=== PATIENT | male | born 1975 | race Asian ===

== ENCOUNTER 2019-11-15 16:54 | Inpatient (IN) | payer OTHER ==
[~2019-11-15] VITALS: Ht 167.6 cm; Wt 88.0 kg
[2019-11-15 18:07] LABS: BASOPHILS % (AUTO) 0.4 % (0.0-2.0); EOSINOPHILS % (AUTO) 0.5 % (1.0-6.0); HEMATOCRIT 43.6 % (41-53); HEMOGLOBIN 15.2 g/dL (13.5-17.5); LYMPHOCYTES # (AUTO) 3.6 K/uL (1.0-4.8); LYMPHOCYTES % (AUTO) 39.2 % (22.0-44.0); MEAN CORPUSCULAR HEMOGLOBIN 30.4 pg (26.0-34.0); MEAN CORPUSCULAR HGB CONC 34.8 G/dL (31.0-37.0); MEAN CORPUSCULAR VOLUME 88 fL (80-100); MONOCYTES # (AUTO) 0.8 K/uL (0.1-1.0); MONOCYTES % (AUTO) 8.7 % (2.0-9.0); NEUTROPHILS # (AUTO) 4.8 K/uL (1.8-7.7); NEUTROPHILS % (AUTO) 51.2 % (40.0-70.0); PLATELET COUNT (AUTO) 177 K/uL (150-450); RED BLOOD CELL COUNT(AUTO) 4.99 MIL/uL (4.50-5.90); RED CELL DISTRIBUTION WIDTH 13.3 % (11.5-14.5)
[2019-11-15] MEDS ORDERED: CloZAPine 100 MG TABLET PO ONE (18:15)
[2019-11-15 18:16] LABS: ANION GAP 15 mmol/L (8-16); CALCIUM, TOTAL 9.2 mg/dL (8.8-10.5); CARBON DIOXIDE 25 mmol/L (22-29); CHLORIDE 100 mmol/L (98-107); CREATININE 1.14 mg/dL (0.60-1.30); GLOMERULAR FILTR. RATE CALC > 60 mL/min (>60); GLUCOSE,RANDOM 147 mg/dL (70-110); POTASSIUM 3.5 mmol/L (3.5-5.1); SODIUM SERUM 140 mmol/L (136-145); UREA NITROGEN, BLOOD 15 mg/dL (7-18)
[2019-11-15 18:22] LABS: ALANINE AMINOTRANSFERASE 84 U/L (12-78); ALBUMIN 4.2 g/dL (3.4-5.0); ALKALINE PHOSPHATASE 72 U/L (46-116); ASPARTATE AMINOTRANSFERASE 35 U/L (15-37); BILIRUBIN,TOTAL 0.4 mg/dL (0.1-1.0)
[2019-11-15 18:39] LABS: AMPHET/METH SCREEN,URINE NEGATIVE (NEGATIVE); BARBITURATE SCREEN, URINE NEGATIVE (NEGATIVE); BENZODIAZEPINES SCREEN,URINE NEGATIVE (NEGATIVE); CANNABINOID SCREEN,URINE NEGATIVE (NEGATIVE); COCAINE SCREEN,URINE NEGATIVE (NEGATIVE); METHADONE SCREEN, URINE NEGATIVE (NEGATIVE); OPIATE SCREEN,URINE NEGATIVE (NEGATIVE)
[2019-11-15 18:40] LABS: PHENCYCLIDINE SCREEN,URINE NEGATIVE (NEGATIVE)
[2019-11-15] MEDS ORDERED: HALOPERIDOL 5 MG TABLET PO PRN (19:45)
[2019-11-15] MEDS ORDERED: ZOLPIDEM TARTRATE 10 MG TABLET PO PRN (19:45)
[2019-11-15] MEDS ORDERED: LORazepam 2 MG TABLET PO PRN (19:45)
[2019-11-16 00:36] VITALS: BP 122/46
[2019-11-16 00:41] VITALS: BP 122/46
[2019-11-16] MEDS ORDERED: INFLUENZA VIRUS VACCINE QVS 2019-20 (3YR+)/PF 60 MCG/0.5 ML SYRINGE IM ONE (01:15)
[2019-11-16] MEDS ORDERED: PNEUMOCOCCAL VACCINE POLYVALENT 0.5 ML VIAL [PPSV23] IM ONE (01:15)
[2019-11-16 07:45] LABS: CHOL/HDL RATIO 2.4 (4.2-7.3)
[2019-11-16 08:51] VITALS: BP 130/78
[2019-11-16] MEDS: ZIPRASIDONE HCL 40 MG CAPSULE PO SCH (17:10)
[2019-11-16 17:57] VITALS: BP 134/85
[2019-11-17] MEDS: ZIPRASIDONE HCL 40 MG CAPSULE PO SCH (06:51)
[2019-11-17 10:52] LABS: ALANINE AMINOTRANSFERASE 104 U/L (12-78); ALBUMIN 4.3 g/dL (3.4-5.0); ALKALINE PHOSPHATASE 81 U/L (46-116); ANION GAP 9 mmol/L (8-16); ASPARTATE AMINOTRANSFERASE 41 U/L (15-37); BILIRUBIN,TOTAL 0.7 mg/dL (0.1-1.0); CALCIUM, TOTAL 9.3 mg/dL (8.8-10.5); CARBON DIOXIDE 29 mmol/L (22-29); CHLORIDE 104 mmol/L (98-107); CREATININE 1.17 mg/dL (0.60-1.30); GLOMERULAR FILTR. RATE CALC > 60 mL/min (>60); GLUCOSE,RANDOM 89 mg/dL (70-110); POTASSIUM 4.3 mmol/L (3.5-5.1); SODIUM SERUM 142 mmol/L (136-145); TOTAL PROTEIN, SERUM 7.7 g/dL (6.4-8.2); UREA NITROGEN, BLOOD 14 mg/dL (7-18)
[2019-11-17 11:12] VITALS: BP 117/88
[2019-11-17] MEDS: ZIPRASIDONE HCL 60 MG CAPSULE PO SCH (16:35)
[2019-11-17 18:43] VITALS: BP 127/90
[2019-11-18 06:35] VITALS: BP 126/86
[2019-11-18] MEDS: ZIPRASIDONE HCL 60 MG CAPSULE PO SCH (07:26)
[2019-11-18 09:10] VITALS: BP 136/85
[2019-11-18 17:00] VITALS: BP 122/83
[2019-11-18] MEDS: ZIPRASIDONE HCL 80 MG CAPSULE PO SCH (17:20)
[2019-11-19] MEDS: ZIPRASIDONE HCL 80 MG CAPSULE PO SCH ×2 (06:38→17:07)
[2019-11-19 08:45] VITALS: BP 136/77
[2019-11-19 17:28] VITALS: BP 116/69
[2019-11-20] MEDS: ZIPRASIDONE HCL 80 MG CAPSULE PO SCH ×2 (07:09→17:01)
[2019-11-20 08:00] VITALS: BP 121/79
[2019-11-20] MEDS: DIVALPROEX SODIUM 500 MG ER TABLET PO SCH (17:01)
[2019-11-20 20:24] VITALS: BP 119/81
[2019-11-21] MEDS: ZIPRASIDONE HCL 80 MG CAPSULE PO SCH ×2 (06:39→17:29)
[2019-11-21] MEDS: DIVALPROEX SODIUM 500 MG ER TABLET PO SCH ×2 (08:24→17:30)
[2019-11-21 12:55] VITALS: BP 135/76
[2019-11-21 19:32] VITALS: BP 123/76
[2019-11-22] MEDS: ZIPRASIDONE HCL 80 MG CAPSULE PO SCH ×2 (06:37→17:32)
[2019-11-22] MEDS: DIVALPROEX SODIUM 500 MG ER TABLET PO SCH ×2 (09:40→17:32)
[2019-11-22 10:02] VITALS: BP 137/95
[2019-11-22 17:40] VITALS: BP 136/86
[2019-11-23] MEDS: ZIPRASIDONE HCL 80 MG CAPSULE PO SCH ×2 (06:50→16:36)
[2019-11-23 09:05] VITALS: BP 122/61
[2019-11-23] MEDS: DIVALPROEX SODIUM 500 MG ER TABLET PO SCH ×2 (10:39→16:36)
[2019-11-23 19:00] VITALS: BP 123/80
[2019-11-24] MEDS: ZIPRASIDONE HCL 80 MG CAPSULE PO SCH ×2 (06:48→17:43)
[2019-11-24] MEDS: DIVALPROEX SODIUM 500 MG ER TABLET PO SCH ×2 (09:16→16:39)
[2019-11-24 09:46] VITALS: BP 128/84
[2019-11-24 17:42] VITALS: BP 123/80
[2019-11-25] MEDS: ZIPRASIDONE HCL 80 MG CAPSULE PO SCH ×2 (06:34→17:30)
[2019-11-25 08:00] VITALS: BP 115/84
[2019-11-25] MEDS: DIVALPROEX SODIUM 500 MG ER TABLET PO SCH ×2 (08:14→16:12)
[2019-11-25 17:47] VITALS: BP 114/80
[2019-11-26] MEDS: ZIPRASIDONE HCL 80 MG CAPSULE PO SCH ×2 (07:02→16:33)
[2019-11-26 09:08] VITALS: BP 119/93
[2019-11-26] MEDS: DIVALPROEX SODIUM 500 MG ER TABLET PO SCH (09:31)
[2019-11-26] MEDS: DIVALPROEX SODIUM 250 MG ER TABLET PO SCH (16:32)
[2019-11-26 17:55] VITALS: BP 123/80
[2019-11-27] MEDS: ZIPRASIDONE HCL 80 MG CAPSULE PO SCH ×2 (07:01→16:46)
[2019-11-27] MEDS: DIVALPROEX SODIUM 250 MG ER TABLET PO SCH ×2 (07:55→16:47)
[2019-11-27 10:01] VITALS: BP 112/70
[2019-11-27 17:59] VITALS: BP 104/75
[2019-11-28] MEDS: ZIPRASIDONE HCL 80 MG CAPSULE PO SCH ×2 (07:02→16:35)
[2019-11-28] MEDS: DIVALPROEX SODIUM 250 MG ER TABLET PO SCH ×2 (09:29→16:35)
[2019-11-28 09:40] VITALS: BP 104/73
[2019-11-28 16:49] VITALS: BP 122/77
[2019-11-29] MEDS: ZIPRASIDONE HCL 80 MG CAPSULE PO SCH ×2 (06:35→17:22)
[2019-11-29] MEDS: DIVALPROEX SODIUM 250 MG ER TABLET PO SCH ×2 (08:03→17:22)
[2019-11-29 09:48] VITALS: BP 129/82
[2019-11-29 17:38] VITALS: BP 135/77
[2019-11-30 04:27] VITALS: BP 127/80
[2019-11-30] MEDS: ZIPRASIDONE HCL 80 MG CAPSULE PO SCH (06:54)
[2019-11-30] MEDS: DIVALPROEX SODIUM 250 MG ER TABLET PO SCH (08:54)
[2019-11-30 09:28] VITALS: BP 136/84
[2019-11-30] MEDS ORDERED: DIVA250T45 PO (13:21)
[2019-11-30] MEDS ORDERED: DIVA500T52 PO (13:21)
[2019-11-30] MEDS ORDERED: ZIPR80CA2 PO (13:22)
== END 2019-11-30 14:20 | disposition home or self-care (01) | DRG 885 ==
LOC: EMS 16:56 → 3EI 23:51
PROVIDERS: ADMIT Psychiatry & Neurology Psychiatry; ATTEND Psychiatry & Neurology Psychiatry
PROC: 3E0234Z Introduction of Serum, Toxoid and Vaccine into Muscle, Percutaneous Approach (ICD-10-PCS; principal; 2019-11-23)
DX: F31.2 Bipolar disorder, current episode manic severe with psychotic features (principal); Z23 Encounter for immunization; E11.9 Type 2 diabetes mellitus without complications; F41.9 Anxiety disorder, unspecified; F17.210 Nicotine dependence, cigarettes, uncomplicated; Z91.19 Patient's noncompliance with other medical treatment and regimen; R03.0 Elevated blood-pressure reading, without diagnosis of hypertension; R79.89 Other specified abnormal findings of blood chemistry
CPT/HCPCS: 80074; 83036; 90732; G0480

== ENCOUNTER 2019-12-13 17:59 | Emergency (ER) | payer SELFPAY ==
[~2019-12-13] VITALS: Ht 170.2 cm; Wt 100.0 kg
[~2019-12-13 17:59] MED LIST: DIVA250T45 PO; DIVA500T52 PO; ZIPR80CA2 PO
[2019-12-13 18:01] VITALS: BP 136/86
[2019-12-13] MEDS ORDERED: METF-960 PO (18:09)
[2019-12-13 18:18] LABS: GLUCOSE,POINT OF CARE 128 MG/DL (70-110)
== END 2019-12-13 20:00 | disposition home or self-care (01) ==
LOC: EMS 18:01
DX: F31.9 Bipolar disorder, unspecified (principal); E11.9 Type 2 diabetes mellitus without complications; F17.210 Nicotine dependence, cigarettes, uncomplicated; Z76.0 Encounter for issue of repeat prescription; Z79.84 Long term (current) use of oral hypoglycemic drugs; Z79.899 Other long term (current) drug therapy

== ENCOUNTER 2023-03-25 09:40 | Inpatient (IN) | payer MEDICAID ==
[~2023-03-25] VITALS: Ht 167.6 cm; Wt 84.6 kg
[~2023-03-25 09:40] MED LIST changes: +DIVA-85 PO; -DIVA250T45 PO; -DIVA500T52 PO; +DIVA500T53 PO; +METF-1211 PO
[2023-03-25] MEDS ORDERED: LORazepam 2 MG TABLET PO PRN (10:00)
[2023-03-25] MEDS ORDERED: ZOLPIDEM TARTRATE 10 MG TABLET PO PRN (10:00)
[2023-03-25] MEDS ORDERED: OLANZapine 5 MG TABLET PO PRN (10:00)
[2023-03-25] MEDS ORDERED: FAMO20 PO (12:04)
[2023-03-25] MEDS ORDERED: DOCU-385 PO (12:05)
[2023-03-25] MEDS ORDERED: ETHY1MED2 NASAL (12:06)
[2023-03-25] MEDS ORDERED: INSU100V SQ (12:08)
[2023-03-25 18:23] VITALS: BP 128/61
[2023-03-25] MEDS ORDERED: GLUCAGON,HUMAN RECOMBINANT 1 MG VIAL IM PRN (19:45)
[2023-03-25] MEDS ORDERED: INSULIN LISPRO 100 UNITS/ML SQ PRN (19:45)
[2023-03-26 04:21] LABS: GLUCOMETER DEV NAME(LOC) BV2S.; GLUCOSE,POINT OF CARE 158 MG/DL (70-110)
[2023-03-26 06:56] LABS: GLUCOMETER DEV NAME(LOC) BV2S.; GLUCOSE,POINT OF CARE 95 MG/DL (70-110)
[2023-03-26 08:10] VITALS: BP 106/67
[2023-03-26 16:46] LABS: GLUCOMETER DEV NAME(LOC) BV2S.; GLUCOSE,POINT OF CARE 104 MG/DL (70-110)
[2023-03-26] MEDS: DIVALPROEX SODIUM 500 MG DR TABLET PO SCH (16:56)
[2023-03-26] MEDS: ZIPRASIDONE HCL 80 MG CAPSULE PO SCH (20:11)
[2023-03-26 20:21] VITALS: BP 115/78
[2023-03-26 20:31] LABS: GLUCOMETER DEV NAME(LOC) BV2S.; GLUCOSE,POINT OF CARE 102 MG/DL (70-110)
[2023-03-27 06:36] LABS: GLUCOMETER DEV NAME(LOC) BV2S.; GLUCOSE,POINT OF CARE 98 MG/DL (70-110)
[2023-03-27 08:09] VITALS: BP 123/78
[2023-03-27] MEDS: DIVALPROEX SODIUM 500 MG DR TABLET PO SCH ×2 (08:14→16:54)
[2023-03-27 11:56] LABS: GLUCOMETER DEV NAME(LOC) BV2S.; GLUCOSE,POINT OF CARE 136 MG/DL (70-110)
[2023-03-27 16:46] LABS: GLUCOMETER DEV NAME(LOC) BV2S.; GLUCOSE,POINT OF CARE 98 MG/DL (70-110)
[2023-03-27] MEDS: ZIPRASIDONE HCL 80 MG CAPSULE PO SCH (20:08)
[2023-03-27 20:12] VITALS: BP 112/77
[2023-03-27 20:31] LABS: GLUCOMETER DEV NAME(LOC) BV2S.; GLUCOSE,POINT OF CARE 97 MG/DL (70-110)
[2023-03-28 06:21] LABS: GLUCOMETER DEV NAME(LOC) BV2S.; GLUCOSE,POINT OF CARE 92 MG/DL (70-110)
[2023-03-28 08:17] VITALS: BP 145/69
[2023-03-28] MEDS: DIVALPROEX SODIUM 500 MG DR TABLET PO SCH ×2 (09:04→16:34)
[2023-03-28 11:31] LABS: GLUCOMETER DEV NAME(LOC) BV2S.; GLUCOSE,POINT OF CARE 108 MG/DL (70-110)
[2023-03-28 16:26] LABS: GLUCOMETER DEV NAME(LOC) BV2S.; GLUCOSE,POINT OF CARE 93 MG/DL (70-110)
[2023-03-28 20:18] VITALS: BP 115/76
[2023-03-28] MEDS: ZIPRASIDONE HCL 80 MG CAPSULE PO SCH (20:44)
[2023-03-28 21:06] LABS: GLUCOMETER DEV NAME(LOC) BV2S.; GLUCOSE,POINT OF CARE 112 MG/DL (70-110)
[2023-03-29 06:31] LABS: GLUCOMETER DEV NAME(LOC) BV2S.; GLUCOSE,POINT OF CARE 96 MG/DL (70-110)
[2023-03-29 08:24] VITALS: BP 120/72
[2023-03-29] MEDS: DIVALPROEX SODIUM 500 MG DR TABLET PO SCH ×2 (08:34→16:42)
[2023-03-29 11:26] LABS: GLUCOMETER DEV NAME(LOC) BV2S.; GLUCOSE,POINT OF CARE 106 MG/DL (70-110)
[2023-03-29 16:47] LABS: GLUCOMETER DEV NAME(LOC) BV2S.; GLUCOSE,POINT OF CARE 86 MG/DL (70-110)
[2023-03-29 20:23] VITALS: BP 111/78
[2023-03-29 21:11] LABS: GLUCOMETER DEV NAME(LOC) BV2S.; GLUCOSE,POINT OF CARE 90 MG/DL (70-110)
[2023-03-29] MEDS: ZIPRASIDONE HCL 80 MG CAPSULE PO SCH (21:33)
[2023-03-30 08:13] VITALS: BP 116/75
[2023-03-30] MEDS: DIVALPROEX SODIUM 500 MG DR TABLET PO SCH ×2 (09:18→16:38)
[2023-03-30 16:00] LABS: GLUCOMETER DEV NAME(LOC) BV2S.; GLUCOSE,POINT OF CARE 92 MG/DL (70-110)
[2023-03-30 16:00] LABS: GLUCOMETER DEV NAME(LOC) BV2S.; GLUCOSE,POINT OF CARE 92 MG/DL (70-110)
[2023-03-30 16:31] LABS: GLUCOMETER DEV NAME(LOC) BV2S.; GLUCOSE,POINT OF CARE 85 MG/DL (70-110)
[2023-03-30 20:20] VITALS: BP 114/62
[2023-03-30] MEDS: ZIPRASIDONE HCL 80 MG CAPSULE PO SCH (20:35)
[2023-03-30 23:21] LABS: GLUCOMETER DEV NAME(LOC) POC.BV
[2023-03-31 08:14] VITALS: BP 122/80
[2023-03-31] MEDS: DIVALPROEX SODIUM 500 MG DR TABLET PO SCH ×2 (09:24→16:42)
[2023-03-31 20:18] VITALS: BP 108/80
[2023-03-31] MEDS: ZIPRASIDONE HCL 80 MG CAPSULE PO SCH (21:35)
[2023-04-01 08:09] VITALS: BP 126/75
[2023-04-01] MEDS: DIVALPROEX SODIUM 500 MG DR TABLET PO SCH ×2 (08:17→16:54)
[2023-04-01 11:35] LABS: GLUCOMETER DEV NAME(LOC) BV2S.; GLUCOSE,POINT OF CARE 131 MG/DL (70-110)
[2023-04-01 20:03] VITALS: BP 126/86
[2023-04-01] MEDS: ZIPRASIDONE HCL 80 MG CAPSULE PO SCH (20:36)
[2023-04-02 08:33] VITALS: BP 144/76
[2023-04-02] MEDS: DIVALPROEX SODIUM 500 MG DR TABLET PO SCH ×2 (08:40→16:22)
[2023-04-02] MEDS: ZIPRASIDONE HCL 80 MG CAPSULE PO SCH (20:09)
[2023-04-02 20:17] VITALS: BP 101/69
[2023-04-03 08:47] VITALS: BP 111/76
[2023-04-03] MEDS: DIVALPROEX SODIUM 500 MG DR TABLET PO SCH ×2 (08:53→17:04)
[2023-04-03 20:07] VITALS: BP 107/77
[2023-04-03] MEDS: ZIPRASIDONE HCL 80 MG CAPSULE PO SCH (20:39)
[2023-04-04 08:17] VITALS: BP 114/79
[2023-04-04] MEDS: DIVALPROEX SODIUM 500 MG DR TABLET PO SCH (08:23)
[2023-04-04] MEDS: DIVALPROEX SODIUM 250 MG DR TABLET PO SCH (16:38)
[2023-04-04] MEDS: ZIPRASIDONE HCL 80 MG CAPSULE PO SCH (20:17)
[2023-04-04 20:22] VITALS: BP 112/80
[2023-04-05 08:12] VITALS: BP 119/75
[2023-04-05] MEDS: DIVALPROEX SODIUM 250 MG DR TABLET PO SCH ×2 (08:18→16:49)
[2023-04-05 20:00] VITALS: BP 129/60
[2023-04-05] MEDS: ZIPRASIDONE HCL 80 MG CAPSULE PO SCH (20:11)
[2023-04-06 08:09] VITALS: BP 128/78
[2023-04-06] MEDS: DIVALPROEX SODIUM 250 MG DR TABLET PO SCH ×2 (08:53→17:20)
[2023-04-06 20:44] VITALS: BP 102/69
[2023-04-06] MEDS: ZIPRASIDONE HCL 80 MG CAPSULE PO SCH (21:10)
[2023-04-07] MEDS: DIVALPROEX SODIUM 250 MG DR TABLET PO SCH ×2 (08:25→16:51)
[2023-04-07 08:41] VITALS: BP 111/79
[2023-04-07 20:26] VITALS: BP 112/77
[2023-04-07] MEDS: ZIPRASIDONE HCL 80 MG CAPSULE PO SCH (21:41)
[2023-04-08] MEDS: DIVALPROEX SODIUM 250 MG DR TABLET PO SCH ×2 (08:08→16:27)
[2023-04-08 08:13] VITALS: BP 121/72
[2023-04-08 20:00] VITALS: BP 109/71
[2023-04-08] MEDS: ZIPRASIDONE HCL 80 MG CAPSULE PO SCH (20:20)
[2023-04-09 08:14] VITALS: BP 122/64
[2023-04-09] MEDS: DIVALPROEX SODIUM 250 MG DR TABLET PO SCH ×2 (08:37→16:47)
[2023-04-09] MEDS: ZIPRASIDONE HCL 80 MG CAPSULE PO SCH (20:11)
[2023-04-09 20:21] VITALS: BP 113/72
[2023-04-10 08:07] VITALS: BP 108/81
[2023-04-10] MEDS: DIVALPROEX SODIUM 250 MG DR TABLET PO SCH ×2 (08:13→16:41)
[2023-04-10 20:18] VITALS: BP 101/63
[2023-04-10] MEDS: ZIPRASIDONE HCL 80 MG CAPSULE PO SCH (20:22)
[2023-04-11] MEDS: DIVALPROEX SODIUM 250 MG DR TABLET PO SCH ×2 (08:14→16:39)
[2023-04-11 08:36] VITALS: BP 114/78
[2023-04-11 20:34] VITALS: BP 112/73
[2023-04-11] MEDS: ZIPRASIDONE HCL 80 MG CAPSULE PO SCH (21:25)
[2023-04-12 08:13] VITALS: BP 115/70
[2023-04-12] MEDS: DIVALPROEX SODIUM 250 MG DR TABLET PO SCH ×2 (08:22→16:48)
[2023-04-12 20:15] VITALS: BP 134/74
[2023-04-12] MEDS: ZIPRASIDONE HCL 80 MG CAPSULE PO SCH (20:20)
[2023-04-12 20:26] LABS: GLUCOMETER DEV NAME(LOC) POC.BV
[2023-04-13 08:07] VITALS: BP 117/83
[2023-04-13] MEDS: DIVALPROEX SODIUM 250 MG DR TABLET PO SCH ×2 (08:37→16:44)
[2023-04-13 20:09] VITALS: BP 120/87
[2023-04-13] MEDS: ZIPRASIDONE HCL 80 MG CAPSULE PO SCH (20:16)
[2023-04-14 06:49] VITALS: BP 115/73
[2023-04-14 08:10] VITALS: BP 133/72
[2023-04-14] MEDS: DIVALPROEX SODIUM 250 MG DR TABLET PO SCH (08:54)
[2023-04-14] MEDS ORDERED: ZIPR80CA9 PO (09:22)
[2023-04-14] MEDS ORDERED: DIVA-111 PO (09:22)
== END 2023-04-14 11:30 | disposition home or self-care (01) | DRG 750 ==
LOC: B2S 12:04
PROVIDERS: ADMIT Psychiatry & Neurology Child & Adolescent Psychiatry; ATTEND Psychiatry & Neurology Child & Adolescent Psychiatry
DX: F25.1 Schizoaffective disorder, depressive type (principal); F31.4 Bipolar disorder, current episode depressed, severe, without psychotic features; R45.851 Suicidal ideations; E11.9 Type 2 diabetes mellitus without complications; E66.9 Obesity, unspecified; E78.5 Hyperlipidemia, unspecified; Z20.822 Contact with and (suspected) exposure to COVID-19; F41.9 Anxiety disorder, unspecified; G47.00 Insomnia, unspecified; Z68.30 Body mass index [BMI] 30.0-30.9, adult; Z79.4 Long term (current) use of insulin; Z79.899 Other long term (current) drug therapy
CPT/HCPCS: 80164; 82962; 83036; 87081